=== PATIENT | male | born 1960 | race Caucasian/White ===

== ENCOUNTER → 2019-12-02 08:24 | Outpatient (BNVA) | payer MEDICAID, SELFPAY | PROVIDERS: Visit Provider Nurse Practitioner | DX: F20.5 Residual schizophrenia (principal) | CPT/HCPCS: 99213 ==

== ENCOUNTER → 2020-06-02 08:16 | Outpatient (BNVA) | payer MEDICAID, SELFPAY | PROVIDERS: Visit Provider Nurse Practitioner | DX: F20.5 Residual schizophrenia (principal) | CPT/HCPCS: 99213 ==

== ENCOUNTER → 2020-12-07 13:55 | Outpatient (BNVA) | payer MEDICAID, SELFPAY | PROVIDERS: Visit Provider Nurse Practitioner | DX: F20.5 Residual schizophrenia (principal) | CPT/HCPCS: 99214 ==

== ENCOUNTER → 2021-05-31 13:03 | Outpatient (BNVA) | payer MEDICAID, SELFPAY | PROVIDERS: Visit Provider Nurse Practitioner | DX: F20.5 Residual schizophrenia (principal) | CPT/HCPCS: 99214 ==

== ENCOUNTER → 2021-11-15 12:38 | Outpatient (BNVA) | payer MEDICAID, SELFPAY | PROVIDERS: Visit Provider Nurse Practitioner | DX: F20.5 Residual schizophrenia (principal) | CPT/HCPCS: 99214 ==